=== PATIENT | male | born 1960 | race Caucasian/White ===

== ENCOUNTER 2018-10-17 14:14 | Outpatient (CLI) | payer BC ==
--- NOTE | 2018-10-17 14:31 | RAD ---
EXAM: Two views chest PROVIDED CLINICAL HISTORY: Dyspnea COMPARISON: 09/21/2018 FINDINGS: Cardiac silhouette and pulmonary vasculature are within normal limits. There is mild symmetric biapi yousif pleural parenchymal scarring. The lungs otherwise remain clear. The osseous structures have a normal appearance. Vascular calcifications are again seen in the thoracic aorta. There has been no in terval change from prior study. IMPRESSION: No acute cardiopulmonary process.
== END 2018-10-17 14:15 | disposition home or self-care (01) ==
LOC: RAD 14:14
PROVIDERS: ATTEND Internal Medicine Pulmonary Disease
DX: R06.00 Dyspnea, unspecified (principal)
CPT/HCPCS: 71046

== ENCOUNTER 2020-03-22 17:53 | Inpatient (IN) | payer BC ==
[~2020-03-22 17:53] MED LIST: Iopamidol-370 76% 500 ML 1 ML ONE
[2020-03-22] MEDS ORDERED: Ondansetron PF 4 MG/2 ML Vial ONE (18:30)
[2020-03-22] MEDS ORDERED: Lorazepam 2 MG/ML VIAL ONE (18:30)
--- NOTE | 2020-03-22 18:53 | PDOC.HHP ---
Hospitalist HPI - History of Present Illness Vertigo History of Present Illness: PCP; Dr. Umanzor The patient is a 60-year-old male with a past medical history significant for hypertension and COPD that presents to the emergency department via EMS as a transfer from [facility] to rule out posterior stroke. The patient reports that approximately 12:00 this afternoon, the acute onset of vertigo while eating breakfast at home. Reports that the room was spinning. Denies feeling like he was going to pass out. He reports that he became nauseated, so he staggered to the bathroom. His symptoms were so severe that he had to call for his daughter to help him get to the bathroom. There, he vomited approximately 10 times. His daughter reported that he threw up his breakfast food and was dry heaving. She also noticed that his speech was "babbling". For these reasons, EMS was called. The patient reports having left-sided neck pain for the past 1 to 2 weeks. He denies fever/illness. Denies recent fall or trauma. He denies first/worst headache. He is on full dose aspirin. Denies any recent upper respiratory symptoms. He has never had these symptoms of vertigo before. He denies tinnitus, recent antibiotic or heavy NSAID usage. Denies any chest pain, heart palpitations, swelling to his lower extremities. He has COPD, denies any wheezing, cough or hemoptysis. No history of DVT/PE. Denies any abdominal pain, hematemesis, diarrhea, melena/hematochezia. Denies any dysuria or hematu jair. ED Course: [place]: Presented hypertensive, NL HR, RR, SPO2, afebrile. GCS 15 NIH 1 for moderate slurred speech EKG normal sinus rhythm, [address] segments normal, T waves normal, no ST elevation. CT brain: negative acute process. CTA head and neck: Vascular calcifications are present. There is a 50-60% stenosis in the left proximal ICA. There is otherwise good flow in the carotid and vertebrobasilar systems without evidence of major branch occlusion or aneurysm formation. A dominant left vertebral artery is present. There are bullous changes in the upper lung novak. There is an 18 mm enhancing mass in the right parotid gland. This may also represent a neoplasm and should be evaluated by ENT. Medications: Aspirin 324mg Meclizine Betty Alexandro ER: VITAL SIGNS Sun Mar 22, 2020 17:54 ALICE Donohue Alicia BP: 173/93, Pulse: 89, Resp: 19, Temp: 97.7 (Oral), Pain: 6, O2 sat: 96 on (Room Air), Time: 03/22/2020 17:54. VITAL SIGNS [place] Mar 22, 2020 18:15 ALICE Donohue Alicia BP: 143/87, Pulse: 74, Resp: 18, Pain: 6, O2 sat: 96 on (Room Air), Time: 03/22/2020 18:15. CT aorta pending. Medications: LORazepam injection 1 mg IV Push Given 18:37 03/22/2020 ondansetron HCl intravenous 4 mg IV Push Given 18:36 03/22/2020 sodium chloride 0.9 % intravenous 1000 mL IV Fluid Infusion Given 18:35 03/22/2020 Hospitalist ROS - Review of Systems All other systems reviewed; all pertinent +/- noted in HPI/Subj - Medication Medications: lisinopril TABLET : Strength - 10 mg : ORAL Patient Dose: 1 tab(s) Oral once a day. albuterol sulfate inhalation HFA AEROSOL WITH ADAPTER (GRAM) : Strength - 90 mcg : INHALATION Patient Dose: 90 mcg INHALATION every 4 hours prn. amLODIPine tablet : Strength - 5 mg : ORAL Patient Dose: once a day. Allergies: tetracycline Hospitalist History - Past Medical History Source: patient, family, RN notes reviewed Cardiac: reports: HTN Pulmonary: reports: COPD - Past Surgical History Past Surgical History: reports: no pertinent history - Family History Family History: denies: cardiac disorder, cerebrovascular accident - Social History Smoking Status: Current every day smoker (1 pack/day x 20 years) Tobacco Type: cigarettes Alcohol: reports: None Drugs: reports: none Living Situation: With Family Activity level: independent ambulation - Exam General Appearance: awake alert. negative: ill appearing General - other findings: Appears uncomfortable in bed Eye: PERRL, anicteric sclera ENT: normocephalic atraumatic, moist mucosa Neck: supple, symmetric Heart: RRR, no murmur, no gallops, no rubs, normal peripheral pulses Respiratory: CTAB, no wheezes, no rales, no ronchi, normal chest expansion, no tachypnea Gastrointestinal: soft, non-tender, normal bowel sounds, no bruit, no guarding, no rigidity Gastrointestinal - other findings: Negative Rovsing sign negative Walters sign Extremities: no cyanosis, no edema Neurological: normal sensation to touch, no weakness, no focal deficits. negat kristin: facial droop, hemiplegia, speech deficit, vision deficit Neurological - other findings: Rotational nystagmus this noted bilaterally Psychiatric: A&O x 3 Psychiatric - other findings: Mildly anxious Hospitalist Results - EKG Interpretation EKG: Normal sinus rhythm, no ST elevations - Radiology Interpretation CT scan - head Status: report reviewed by me Additional Comment: No CT evidence of acute intracranial process CTA head and neck: Vascular calcifications are present. There is a 50-60% stenosis in the left proximal ICA. There is otherwise good flow in the carotid and vertebrobasilar systems without evidence of major branch occlusion or aneurysm formation. A dominant left vertebral artery is present. There are bullous changes in the upper lung novak. There is an 18 mm enhancing mass in the right parotid gland. This may also represent a neoplasm and should be evaluated by ENT. Hospitalist H&P A/P - Problem (1) Vertigo Code(s): R42 - DIZZINESS AND GIDDINESS Status: Acute (2) Nausea & vomiting Code(s): R11.2 - NAUSEA WITH VOMITING, UNSPECIFIED Status: Acute (3) Mass of right parotid gland Code(s): K11.8 - OTHER DISEASES OF SALIVARY GLANDS Status: Acute (4) Leukocytosis Code(s): D72.829 - ELEVATED WHITE BLOOD CELL COUNT, UNSPECIFIED Status: Acute (5) HTN (hypertension) Code(s): I10 - ESSENTIAL (PRIMARY) HYPERTENSION Status: Chronic (6) Tobacco abuse Code(s): Z72.0 - TOBACCO USE Status: Chronic (7) COPD (chronic obstructive pulmonary disease) Status: Chronic - Plan Plan: 60/M with PMH HTN and COPD presents for vertigo. Admit to stroke unit, inpatient status. Expected length of stay greater than 2 midnights. Presented hypertensive, with NL HR, RR, SPO2, afebrile. CT brain no acute process. CTA head and neck 50-60% stenosis L proximal ICA. No major occlusion or aneurysm EKG NSR, no ST elevation Troponin 0.013, 0.010 Glucose 151 Electrolytes unremarkable WBC 15.2 CT aorta pending. #Vertigo Concern for posterior stroke. Assessment, rotational nystagmus. Order MRI, echocardiogram. Consult neurology and stroke team. Continue aspirin, start statin. Continue meclizine scheduled Check TSH, FLP, mag, UA, folate/B12. Neuro checks. Permissive hypertension. #Nausea and vomiting Likely related to problem #1. Well controlled with meclizine and Zofran as needed. #Mass of right parotid gland Incidental finding on CTA head and neck. Recommend follow-up with ENT to rule out neoplasm. #Leukocytosis with left shift Unclear etiology. CT aorta pending. Will check UA. #HTN Presented hypertensive. Takes lisinopril and Norvasc at home. We will restart home medications. Monitor BP. #Tobacco abuse 1 pack/day habit x20 years. Unwilling to quit. Counseled smoking cessation. #COPD Chronic, stable. Takes Symbicort at home. We will restart home dose of Symbicort. SCDs for DVT prophylaxis. Pepcid for GI prophylaxis. Full code. Family contact is his daughter, Tanya at [phone]. Discussed the case with Dr. Mikey Tian.
[2020-03-22] MEDS ORDERED: hydrALAZINE 20 MG/ML VIAL SLOW IVP PRN (19:44)
[2020-03-22] MEDS ORDERED: Labetalol HCl 100 MG/20 ML VIAL SLOW IVP PRN (19:44)
[2020-03-22] MEDS ORDERED: Calcium Carbonate 500 MG ChewTAB PO PRN (19:47)
[2020-03-22] MEDS ORDERED: Ondansetron ODT 4 MG TAB PO PRN (19:47)
[2020-03-22] MEDS ORDERED: Ondansetron PF 4 MG/2 ML Vial IVP PRN (19:47)
[2020-03-22] MEDS ORDERED: Acetaminophen 650 MG Suppository PR PRN (19:47)
[2020-03-22 20:22] LABS: Troponin I Less than 0.010 ng/mL (< 0.028)
[2020-03-22] MEDS ORDERED: Magnesium 2 GM/50 ML 2 GM in Premix Bag 1 BAG IVPB SCH (20:30)
--- NOTE | 2020-03-22 21:20 | CT ---
CT ANGIOGRAM CHEST AND ABDOMEN WITH IV CONTRAST AND 3D MIP RECONSTRUCTIONS: Date: 03-22-2020 PROVIDED CLINICAL HISTORY: Chest pain FINDINGS: The aorta is of normal caliber and demonstrates no evidence for dissection. Extensive atherosclerotic vascular calcifications are demonstrated, including coronary calcium. There is focal consolidation p resent at the right lung base, compatible with pneumonia. The lungs appear otherwise free of signific ant opacity. There is no pleural fluid or pneumothorax apparent. The airway appears patent and of nor mal caliber. There is no evidence for thoracic lymph node enlargement. There is contrast material present within the renal collecting systems from prior CT examination. The solid abdominal organs demonstrate no significant abnormality. There is no bowel dilatation, inflamm atory fat stranding, free fluid or free air within the abdomen. The appendix appears normal. The osseous structures demonstrate no concerning lytic or blastic lesions. IMPRESSION: 1. Right lower lobe consolidation, compatible with pneumonia. 2. No evidence for dissection. 3. Conspicuous atherosclerotic vascular calcification, including coronary calcium. POS: ANSELMO
[2020-03-22] MEDS: Famotidine 20 MG TAB PO SCH (21:37)
[2020-03-22] MEDS: Meclizine HCl 12.5 MG TAB PO SCH (21:38)
[2020-03-22] MEDS: Rosuvastatin 20 MG TAB PO SCH (21:38)
[2020-03-22 22:40] LABS: Troponin I Less than 0.010 ng/mL (< 0.028)
[2020-03-22 23:01] LABS: Thyroid Stimulating Hormone 0.3023 uIU/mL (0.35-4.94)
[2020-03-23] MEDS: cefTRIAXone\\ROCEPHIN 1 GM in Sodium Chloride 0.9% 100 ML IVPB SCH ×2 (00:35→22:59)
[2020-03-23 01:54] LABS: SARS-CoV-2 MS2 Positive; SARS-CoV-2 N Gene Negative; SARS-CoV-2 S Gene Negative; SARS-CoV-2 by NAA Not Detected (NotDetected); SARS-CoV-2 orf1ab Negative
[2020-03-23] MEDS: Azithromycin 500 MG in Sodium Chloride 0.9% 250 ML 250 ML IVPB SCH (01:56)
[2020-03-23 02:10] VITALS: BMI 29.2
[2020-03-23] MEDS ORDERED: PROVENTIL INHALER 6.7 G (200 INHALATIONS) INH PRN (04:06)
[2020-03-23 04:25] LABS: Bacteria/HPF None Seen HPF (None Seen); Bilirubin Negative (Negative); Blood, Urine Negative (Negative); Clarity Clear (Clear); Glucose, Urine (Dipstick) Normal (Negative); Ketone, Urine Negative (Negative); Leukocyte Negative Leu/uL (Negative); Nitrite Negative (Negative); Protein, Urine (Dipstick) 10 mg/dL (Neg-Trace); RBC/HPF 0-3 HPF (0-3); Specific Gravity, Urine 1.047 (1.002-1.036); Squamous Epithelial 0-3 HPF (0-3); Urobilinogen Normal mg/dL (Less than 2); WBC/HPF 0-3 HPF (0-3)
[2020-03-23] MEDS: Acetaminophen 325 MG TAB PO PRN ×2 (04:47→14:58)
[2020-03-23 05:00] LABS: #Basophils 0.1 thou/uL (0.0-0.2); #Eosinphils 0.2 thou/uL (0.0-0.7); #Lymphocytes 2.2 thou/uL (1.20-3.40); #Monocytes 1.4 thou/uL (0.11-0.59); #Neutrophils 8.2 thou/uL (1.40-6.50); %Basophils 0.8 % (0.0-1.0); %Eosinophils 1.9 % (0.0-10.0); %Lymphocytes 18.1 % (21.0-51.0); %Monocytes 11.6 % (0.0-10.0); %Neutrophils 67.6 % (42.0-75.0); Hemoglobin 14.7 g/dL (14.0-18.0); Mean Corpuscular HGB CONC 33.1 g/dL (32.0-36.0); Mean Corpuscular Hemoglobin 32.9 pg (27.0-31.0); Mean Corpuscular Volume 99.5 fL (78.0-98.0); Platelet Count 152 thou/uL (130-400); Red Blood Cell (RBC) Count 4.46 mill/uL (4.70-6.10); White Blood Cell (WBC) Count 12.1 thou/uL (4.8-10.8)
[2020-03-23] MEDS: Albuterol Sulfate 2.5 mg/3 ml Neb NEB PRN ×2 (05:03→16:34)
[2020-03-23] MEDS: Mometasone 200 MCG/Formoterol 5 MCG 120 PUFF INHALER INH SCH ×2 (05:04→16:34)
[2020-03-23 05:22] LABS: Anion Gap 12 mmol/L (10-20); BUN (Urea Nitrogen) 12 mg/dL (8.4-25.7); Calc. Creatinine Clearance 95 mL/min (70-130); Calcium 9.1 mg/dL (7.8-10.44); Carbon Dioxide 27 mmol/L (23-31); Cardiac Risk 4.9 (Less than 4.5); Chloride 105 mmol/L (98-107); Cholesterol 183 mg/dl (< 200 Desired); Glucose 106 mg/dL (80-115); HDL Cholesterol 37 mg/dL (>60 Neg Risk); LDL Cholesterol, Calculated 95 mg/dL; Potassium 4.3 mmol/L (3.5-5.1); Sodium 140 mmol/L (136-145); Triglycerides 257 mg/dL (Less than 150)
[2020-03-23] MEDS: Meclizine HCl 12.5 MG TAB PO SCH ×3 (09:55→22:53)
[2020-03-23] MEDS: Famotidine 20 MG TAB PO SCH ×2 (09:55→22:53)
[2020-03-23] MEDS: Aspirin 325 mg Enteric Coated Tablet PO SCH (09:55)
--- NOTE | 2020-03-23 12:37 | CON ---
NEUROLOGY CONSULTATION DATE OF CONSULTATION: 03/23/2020 REASON FOR CONSULTATION: Vertigo/rule out posterior circulation stroke. HISTORY OF PRESENT ILLNESS: Mr. Mendez is a 60-year-old male with medical history significant for hypertension and COPD, presented to the department via EMS, was transferred from [facility] to rule out posterior circulation stroke. Per the patient, he had an acute onset of vertigo while eating breakfast at home around 12:00 p.m. on 03/22/2020. He stated that the room was spinning and whenever he moves his neck from one side to another and feels like he is going to pass out. He also had nausea, vomiting, and headache. He vomited about approximately 10 times and called his daughter who noticed that his speech was slurred and for that reason, EMS were called and he was brought to the emergency room for further evaluation. He also complained of left-sided neck pain for the last 1 to 2 weeks and the patient denies focal weakness, focal paresthesias. He does report nausea, vomiting, headache, but denies recent illness or recent exposure to COVID. He never had episodes of dizziness before in his life. He does have COPD, but denies cough, wheezing, palpitation, edema, abdominal pain, chest pain, or recent exposure to COVID. In the emergency room, he was found to be hypertensive. NIH Stroke Scale was 1 with moderate slurred speech. Head CT was done, which was negative for acute intracranial process. EKG showed normal sinus rhythm. CTA of the head and neck was done, which showed 50% to 60% stenosis of the left proximal ICA. There is otherwise good flow in the carotid and vertebrobasilar system without evidence of major branch occlusion or aneurysm formation and a dominant left vertebral artery is present. Chest x-ray did not show any acute cardiopulmonary process. There is an incidental finding of an enhancing mass in the right parotid, which should be evaluated by ENT recommended by Cardiology. The patient was given aspirin, meclizine, Reglan, and transferred to [facility] for further evaluation for stroke. REVIEW OF SYSTEMS: All systems were reviewed and were negative except the pertinent positives and negatives mentioned in the HPI. HOME MEDICATIONS: 1. Lisinopril. 2. Albuterol. 3. Amlodipine. ALLERGIES: TETRACYCLINE. PAST MEDICAL HISTORY: Hypertension, COPD. PAST SURGICAL HISTORY: No past surgical history. FAMILY HISTORY: Significant for cardiovascular disease and cerebrovascular accident. SOCIAL HISTORY: The patient lives with family, ambulates independently. He is a current every day smoker with one pack per day for the last 20 years. Denies alcohol, illegal drug use. PHYSICAL EXAMINATION: 166/79 79 20 General Appearance: awake alert. negative: ill appearing Eye: PERRL, anicteric sclera ENT: normocephalic atraumatic, moist mucosa Neck: supple, symmetric Heart: RRR, no murmur, no gallops, no rubs, normal peripheral pulses Respiratory: CTAB, no wheezes, no rales, no ronchi, normal chest expansion, no tachypnea Gastrointestinal: soft, non-tender, normal bowel sounds, no bruit, no guarding, no rigidity Gastrointestinal - other findings: Negative Rovsing sign negative Walters sign Extremities: no cyanosis, no edema Neurological: Mental status, the patient is alert and oriented to person, place, and time. Recent and remote memory intact. Speech is clear. Motor; muscle, tone, and bulk are normal. Strength 5/5 bilaterally. Sensory intact. Cerebellar, finger-nose testing intact. Gait deferred due to patient's safety reasons. DATA REVIEWED: I reviewed the head CT which was negative for acute intracranial pathology. EKG showed normal sinus rhythm. CT of the head and neck reviewed, results noted in the HPI. - EKG Interpretation EKG: Normal sinus rhythm, no ST elevations - Radiology Interpretation CT scan - head Status: report reviewed by me Additional Comment: No CT evidence of acute intracranial process CTA head and neck: Vascular calcifications are present. There is a 50-60% stenosis in the left proximal ICA. There is otherwise good flow in the carotid and vertebrobasilar systems without evidence of major branch occlusion or aneurysm formation. A dominant left vertebral artery is present. There are bullous changes in the upper lung novak. There is an 18 mm enhancing mass in the right parotid gland. This may also represent a neoplasm and should be evaluated by ENT. ASSESSMENT AND PLAN: (1) Vertigo Code(s): R42 - DIZZINESS AND GIDDINESS Status: Acute (2) Nausea & vomiting Code(s): R11.2 - NAUSEA WITH VOMITING, UNSPECIFIED Status: Acute (3) Mass of right parotid gland Code(s): K11.8 - OTHER DISEASES OF SALIVARY GLANDS Status: Acute (4) Leukocytosis Code(s): D72.829 - ELEVATED WHITE BLOOD CELL COUNT, UNSPECIFIED Status: Acute (5) HTN (hypertension) Code(s): I10 - ESSENTIAL (PRIMARY) HYPERTENSION Status: Chronic (6) Tobacco abuse Code(s): Z72.0 - TOBACCO USE Status: Chronic (7) COPD (chronic obstructive pulmonary disease) Status: Chronic Mr. Santos Mendez is a 60-year-old male with history significant for COPD and hypertension, presented with vertigo with nausea and vomiting. There is a concern about posterior circulation TIA versus CVA. Consider MRI of the brain to rule out acute intracranial process, 2D echo to evaluate for left ventricular ejection fraction, and telemetry to rule out arrhythmias. CTA of the head and neck did not reveal hemodynamically significant stenosis, however, there is 50% to 60% stenosis in the left proximal ICA with otherwise good flow in the carotid and vertebrobasilar system without evidence of major branch occlusion or aneurysm formation. Neuro checks every 4 hours. Permissive control of blood pressure at this time. Strict control of blood glucose. Continue home medications. PT/OT/speech. Continue medical management per primary team. Start aspirin and high-intensity statin for secondary stroke prevention. GI prophylaxis and DVT prophylaxis. We will continue to follow. Thank you for the consult. Job ID: [id number] [facility]ENTEROrtega
--- NOTE | 2020-03-23 14:31 | PDOC.HOSPP ---
- Subjective Encounter Date: 03/23/20 Encounter Time: 14:00 Subjective: pt up in bed feels weak and some dizziness. - Objective Vital Signs & Weight: Vital Signs (12 hours) Temp Pulse Pulse Pulse Resp BP BP 03/23/20 11:53 97.9 F 79 20 03/23/20 11:20 74 76 145/87 H 168/96 H 03/23/20 08:07 03/23/20 07:46 97.7 F 73 20 03/23/20 05:04 65 16 03/23/20 05:03 62 16 03/23/20 03:00 98.1 F 67 16 BP Pulse Ox 03/23/20 11:53 166/95 H 93 L 03/23/20 11:20 03/23/20 08:07 98 03/23/20 07:46 133/83 98 03/23/20 05:04 95 03/23/20 05:03 95 03/23/20 03:00 125/74 93 L Weight Weight 203 lb 8 oz I&O: 03/22/20 03/23/20 03/24/20 06:59 06:59 06:59 Intake Total 200 Balance 200 Result Diagrams: 03/23/20 04:30 03/23/20 04:30 Hospitalist ROS - Review of Systems Constitutional: reports: weakness Cardiovascular: reports: light headedness Gastrointestinal: denies: nausea, vomiting, abdominal pain, diarrhea, constipation, melena, hematochezia, other - Medication Medications: Active Medications Generic Name Dose Route Start Last Admin Trade Name Freq PRN Reason Stop Dose Admin Acetaminophen 650 mg 03/22/20 19:47 03/23/20 04:47 Acetaminophen 325 Mg Tab PO 650 mg Q4H PRN Administration Headache/Fever/Mild Pain (1-3) Albuterol Sulfate 2.5 mg 03/23/20 04:43 03/23/20 05:03 Albuterol Sulfate 2.5 Mg/3 Ml Neb NEB 2.5 mg Q6H PRN Administration SOB &/or Wheezing Aspirin 325 mg 03/23/20 09:00 03/23/20 09:55 Aspirin 325 Mg Enteric Coated Tablet PO 325 mg DAILY JABIER Administration Famotidine 20 mg 03/22/20 21:00 03/23/20 09:55 Famotidine 20 Mg Tab PO 20 mg BID JABIER Administration Ceftriaxone Sodium 1 gm/ 100 mls @ 200 mls/hr 03/22/20 23:59 03/23/20 00:35 Sodium Chloride IVPB 100 mls Q24HR JABIER Administration Azithromycin 500 mg/ Sodium 250 mls @ 250 mls/hr 03/23/20 01:00 03/23/20 01:56 Chloride IVPB 250 mls Q24HR JABIER Administration Meclizine HCl 25 mg 03/22/20 21:00 03/23/20 09:55 Meclizine Hcl 12.5 Mg Tab PO 25 mg TID JABIER Administration Mometasone Furoate/Formoterol Fumar 2 puff 03/23/20 06:30 03/23/20 05:04 Mometasone 200 Mcg/Formoterol 5 Mcg 120 Puff Inhaler INH 2 puff BID-RT JABIER Administration Rosuvastatin Calcium 20 mg 03/22/20 21:00 03/22/20 21:38 Rosuvastatin 20 Mg Tab PO 20 mg HS JABIER Administration Sodium Chloride 10 ml 03/22/20 19:44 03/23/20 09:55 Flush - Normal Saline 10 Ml Syringe IVF 10 ml PRN PRN Administration Saline Flush - Exam Heart: negative: RRR, no murmur, no gallops, no rubs, normal peripheral pulses, irregular, diminshed peripheral pulses, murmur present, II/IV, III/IV Respiratory: negative: CTAB, no wheezes, no rales, no ronchi, normal chest expansion, no tachypnea, normal percussion, rales, rhonchi, tachypneic, wheezes Gastrointestinal: negative: soft, non-tender, non-distended, normal bowel sounds, no palpable masses, no hepatomegaly, no splenomegaly, no bruit, no guarding, no rigidity, tender to palpation, distended, diminished bowl sounds, voluntary guarding Hosp A/P (1) Mass of right parotid gland Code(s): K11.8 - OTHER DISEASES OF SALIVARY GLANDS Status: Acute (2) Vertigo Code(s): R42 - DIZZINESS AND GIDDINESS Status: Acute (3) COPD (chronic obstructive pulmonary disease) Status: Chronic (4) HTN (hypertension) Code(s): I10 - ESSENTIAL (PRIMARY) HYPERTENSION Status: Chronic (5) Tobacco abuse Code(s): Z72.0 - TOBACCO USE Status: Chronic (6) HTN (hypertension) Code(s): I10 - ESSENTIAL (PRIMARY) HYPERTENSION Status: Chronic Qualifiers: Hypertension type: essential hypertension Qualified Code(s): I10 - Essential (primary) hypertension (7) Pneumonia Code(s): J18.9 - PNEUMONIA, UNSPECIFIED ORGANISM Status: Acute - Plan Patient up in bed still feels weak and has some dizziness. MRI brain pending. We will continue antibiotics for community-acquired pneumonia. Patient asked to follow-up with ENT as an outpatient for his right parotid gland lesion. Patient's left ICA indicated 50 to 60% I have asked him to stop smoking he will need aspirin and statin.
[2020-03-23] MEDS ORDERED: Lorazepam 2 MG/ML VIAL SLOW IVP SCH (14:45)
--- NOTE | 2020-03-23 16:14 | MRI ---
MRI BRAIN NONCONTRAST: DATE: 03/23/2020 HISTORY: 60-year-old male with "stroke." Nausea, vomiting, weakness, and dizziness FINDINGS: All images degraded by motion. There is no obstructive hydrocephalus. There is no midline shift or any other evidence of mass effect . There is no extra-axial fluid collection. There is a mild-moderate degree of T2-hyperintensities in the cerebral white matter consistent with chronic ischemic white matter changes due to microvascul ar atherosclerosis. There is no evidence of recent hemorrhage or restricted diffusion. Small 0.9 x 0.4 cm focus of hyperintense signal abnormality on T2 WI and FLAIR, in the left boothe radiata. IMPRESSION: 1) mild-moderate chronic ischemic white matter changes. 2) small old lacunar infarction in left deep cerebral white matter. 3) otherwise negative
[2020-03-23] MEDS ORDERED: Amlodipine 5 MG TAB PO SCH (21:00)
[2020-03-23] MEDS: Rosuvastatin 20 MG TAB PO SCH (22:53)
[2020-03-24] MEDS: Azithromycin 500 MG in Sodium Chloride 0.9% 250 ML 250 ML IVPB SCH (02:30)
[2020-03-24] MEDS: Acetaminophen 325 MG TAB PO PRN ×2 (02:32→08:58)
[2020-03-24] MEDS: Mometasone 200 MCG/Formoterol 5 MCG 120 PUFF INHALER INH SCH (06:38)
[2020-03-24] MEDS ORDERED: FLU VACC QS2020-21(6MOS UP)/PF 60 MCG/0.5 ML SYRINGE IM ONE (07:45)
[2020-03-24] MEDS: Famotidine 20 MG TAB PO SCH (08:57)
[2020-03-24] MEDS: Aspirin 325 mg Enteric Coated Tablet PO SCH (08:57)
[2020-03-24] MEDS: Meclizine HCl 12.5 MG TAB PO SCH (08:58)
[2020-03-24] MEDS ORDERED: Lisinopril 20 MG TAB PO SCH (09:00)
[2020-03-24] MEDS ORDERED: Metoprolol Tartrate 25 MG TAB PO SCH ×2 (09:15→21:00)
[2020-03-24] MEDS ORDERED: Amlodipine 5 MG TAB PO SCH ×2 (09:15→21:00)
[2020-03-24 11:41] VITALS: TEMP 97.2
[2020-03-24 13:03] VITALS: BP 158/87
--- NOTE | 2020-03-24 15:29 | PDOC.DS.DS ---
Provider - Provider Date of Admission: 03/22/20 18:58 Date of Discharge: 03/24/20 Admitting Provider: Dago Armando MD Consultations: Neurology Primary Care Physician: Sahara Umanzor MD Course - Hospital Course Hospital Course: Patient was a 60-year-old male who initially presented to the hospital with vertigo. At this time he underwent a stroke work-up. CTA indicated 50 to 60% stenosis on his left proximal ICA. He also had a mass on his right parotid enhancing mass of 18 mm. Patient was asked to follow-up with ENT number has been provided to the patient. 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 Patient was asked to follow-up with primary and also take his aspirin and statin. Echo indicated EF 50 to 55%. Patient's vertigo has improved significantly he walked with physical therapy. We will give him outpatient vestibular clinic follow-up. Patient also was noted to have pneumonia antibiotics were started on this patient. Resuscitation Status: 03/22/20 19:47 Resuscitation Status Routine Co-Sign Provider: Resuscitation Status: FULL: Full Resuscitation Discussed with: Patient - Labs Lab Results: 03/23/20 04:30 03/23/20 04:30 Abnormal Lab Results - Last 48 hrs 03/22/20 21:52: TSH 3rd Generation 0.3023 L 03/23/20 03:45: Ur Specific [place] 1.047 H 03/23/20 04:30: Triglycerides 257 H 03/23/20 04:30: WBC 12.1 H, RBC 4.46 L, MCV 99.5 H, MCH 32.9 H, Lymphocytes % 18.1 L, Monocytes % 11.6 H, Neutrophils # 8.2 H, Monocytes # 1.4 H Additional comments: MRI brainIMPRESSION: 1) mild-moderate chronic ischemic white matter changes. 2) small old lacunar infarction in left deep cerebral white matter. 3) otherwise negative CTA: FINDINGS: Vascular calcifications are present. There is 50-60% stenosis in the left proximal ICA. There is otherwise good flow in the carotid and vertebral basilar systems without evidence of major branch occlusion or aneurysm formation. A dominant left vertebral artery is present. There are bullous changes in the upper lung novak. There is an 18 mm enhancing mass in the right parotid gland. This may represent a neoplasm and should be evaluated by ENT. - Physical Exam Vitals: Vital Signs (12 hours) Temp Pulse Pulse Pulse Resp BP BP 03/24/20 11:17 97.2 F L 63 15 03/24/20 10:22 71 69 158/87 H 03/24/20 09:52 144/101 H 03/24/20 08:57 144/101 H 03/24/20 07:45 97.3 F L 67 20 03/24/20 07:30 03/24/20 06:40 03/24/20 06:38 64 20 03/24/20 04:00 98.1 F 72 20 BP BP BP Pulse Ox 03/24/20 11:17 140/81 96 03/24/20 10:22 140/100 H 03/24/20 09:52 03/24/20 08:57 03/24/20 07:45 144/101 H 94 L 03/24/20 07:30 98 03/24/20 06:40 92 L 03/24/20 06:38 92 L 03/24/20 04:00 140/83 93 L Weight Weight 203 lb 8 oz Physical Exam: The patient was seen and examined on the day of discharge. Problem - Problem (1) Mass of right parotid gland Code(s): K11.8 - OTHER DISEASES OF SALIVARY GLANDS Status: Acute (2) Vertigo Code(s): R42 - DIZZINESS AND GIDDINESS Status: Acute (3) COPD (chronic obstructive pulmonary disease) Status: Chronic (4) HTN (hypertension) Code(s): I10 - ESSENTIAL (PRIMARY) HYPERTENSION Status: Chronic (5) Tobacco abuse Code(s): Z72.0 - TOBACCO USE Status: Chronic (6) HTN (hypertension) Code(s): I10 - ESSENTIAL (PRIMARY) HYPERTENSION Status: Chronic Qualifiers: Hypertension type: essential hypertension Qualified Code(s): I10 - Essential (primary) hypertension (7) Pneumonia Code(s): J18.9 - PNEUMONIA, UNSPECIFIED ORGANISM Status: Acute Plan - Discharge Medications Prescriptions: Meclizine HCl [Antivert] 25 mg PO TID #15 tab Rosuvastatin [Crestor] 20 mg PO HS #30 tab Aspirin [Ecotrin Regular Strength] 325 mg PO DAILY #30 tab Levofloxacin [Levaquin] 500 mg PO DAILY #5 tab amLODIPine Besylate [Norvasc] 10 mg PO DAILY #30 tablet Ventolin HFA Inhaler 2 puff INH PRN PRN #1 PRN Reason: Sob &/Or Wheezing Home Medications: Medication Instructions Recorded Confirmed Type Lisinopril [Zestril] 40 mg PO DAILY 07/27/16 03/23/20 History Budesonide-Formoterol [Symbicort 2 puff INH BID #1 aer 07/30/16 03/23/20 Rx 160-4.5] Aspirin [Ecotrin Regular Strength] 325 mg PO DAILY #30 tab 03/24/20 Rx Levofloxacin [Levaquin] 500 mg PO DAILY #5 tab 03/24/20 Rx Meclizine HCl [Antivert] 25 mg PO TID #15 tab 03/24/20 Rx Rosuvastatin [Crestor] 20 mg PO HS #30 tab 03/24/20 Rx Ventolin HFA Inhaler 2 puff INH PRN PRN #1 03/24/20 Rx amLODIPine Besylate [Norvasc] 10 mg PO DAILY #30 tablet 03/24/20 Rx Allergies: tetracycline [Tetracycline] Allergy (Verified 03/22/20 21:36) CONVULSIONS - Discharge Instructions Discharge Instructions:: please follow up with ear/nose/throat doctor for your parathryroid mass. Activity:: Activity as Tolerated Nourishment:: Heart Healthy Diet Therapies:: Home Health - Follow up Plan Referrals: Sahara Umanzor MD [Primary Care Provider] - Zachary Borrego MD [Active] - Disposition: HOME Quality - Care Measures CORE MEASURES:: Stroke/TIA - Stroke/TIA Did you prescribe antithrombotic therapy?: No Specify reason for no DC antithrombotic therapy: Treatment not indicated Did you prescribe anticoagulant for A Fib/Flutter?: No Specify reason for no DC anticoagulant: Treatment not indicated Did you prescribe a statin medication?: Yes
--- NOTE | 2020-03-28 11:22 | EKG ---
Test Reason : Blood Pressure : / mmHG Vent. Rate : 076 BPM Atrial Rate : 076 BPM P-R Int : 166 ms QRS Dur : 098 ms QT Int : 408 ms P-R-T Axes : 073 064 072 degrees QTc Int : 459 ms Normal sinus rhythm Normal ECG #2 Confirmed by FLOR ATKINS ([id number]), metropolitan editor FLORENCE DUNLAP ([id number]) on 03/28/2020 11:22:03 AM Referred By: Confirmed By:FLOR ATKINS
--- NOTE | 2020-03-31 03:46 | PQF ---
CLINICAL DOCUMENTATION CLARIFICATION FORM: Dear : Prabha Merrill Date / Time: 03/31/20 Please exercise your independent, professional judgment in responding to the clarification form. Clinical indicators are provided on the bottom of this form for your review In your clinical opinion based on clinical findings below, can you please identify the etiology of Vertigo if: Please check appropriate box(es): [ ] TIA Stenosis / Syndrome related to Carotid Artery [ ] Residual of Old Infarction [x ] Other diagnosis, please specify ___tia [ ] Unable to determine Physician Signature: Date/Time: For continuity of documentation, please document condition throughout progress notes and discharge summary. Thank You. To be completed by CDI/Coding staff for physician review: Present Clinical Indicators - Signs / Symptoms / Labs Results and Location in Medical Record [X] BP 173/93, Pulse 89, Resp 19, Temp 97.7 Vital signs 03/22 [X] CT Hed : 50-60% stenosis L proximal ICA, no major occlusion or aneurysm Imaging 04/21 [X] transfer to rule our posterior stroke H&P p1 04/21 [employer]up [employer] [X] acute onset of vertigo H&P p1 04/21 Anup [employer] [X] Vertigo concern for posterior stroke H&P p5 04/21 Anup [employer] [X] There is concern about posterior circulation TIA versus CVA Consult Dr Thomas 03/23 [X] MRI brain : Mild-morderate chronic ischemic white matter changes. Small old lacunar infarction in lfet deep cerebral white matter Imaging Dr Blanton 03/23 Present Risk Factors Results and Location in Medical Record [X] 60 year-old Male H&P p1 04/21 Anup [employer] [X] HTN H&P p1 04/21 Anup [employer] [X] Smoker H&P p1 04/21 Anup [employer] Present Treatments Results and Location in Medical Record [X] IVF NS 1L JUL 02 [X] Norvasc 5 mg oral JUL 02 [X] Aspirin 325 mg oral JUL 02 [X] Neuro consult Consult Dr Thomas 03/23 CDS/Manager Of Community Relations Signature: Ammy Zaldivarobey Phone #: [phone] Date/Time: 03/31/2020 This is a permanent part of the Medical Record MTDD
== END 2020-03-24 12:39 | disposition home or self-care (01) | DRG 194 ==
LOC: ERS 17:53 → 2SE 18:58
PROVIDERS: ADMIT Internal Medicine; ATTEND Internal Medicine
DX: J18.9 Pneumonia, unspecified organism (principal); G45.9 Transient cerebral ischemic attack, unspecified; J44.0 Chronic obstructive pulmonary disease with (acute) lower respiratory infection; Z20.828 Contact with and (suspected) exposure to other viral communicable diseases; I10 Essential (primary) hypertension; F17.210 Nicotine dependence, cigarettes, uncomplicated; K11.8 Other diseases of salivary glands; D72.829 Elevated white blood cell count, unspecified; Z86.73 Personal history of transient ischemic attack (TIA), and cerebral infarction without residual deficits; Z23 Encounter for immunization; Z79.899 Other long term (current) drug therapy; Z88.1 Allergy status to other antibiotic agents
CPT/HCPCS: 36415; 70551; 71275; 74174; 80048; 80061; 81001; 82607; 82746; 83735; 84145; 84439; 84443; 85025; 87635; 90471; 90662; 93005; 93306; 94640; 96374; 96375; G0008; J0456; J0696; J2060; J2405; J3475; J3490; J7050; J7611; Q9967; U0003